=== PATIENT | female | born 1970 | race Hispanic/Latino ===

== ENCOUNTER 2018-11-01 11:19 | Emergency (ER) | payer OTHER ==
[2018-11-01] MEDS ORDERED: ACETAMINOPHEN EXTRA STRENGTH 500 MG TABLET ONE (11:36)
== END 2018-11-01 12:12 | disposition home or self-care (01) ==
LOC: EDH 11:19
DX: S93.402A Sprain of unspecified ligament of left ankle, initial encounter (principal); Z98.890 Other specified postprocedural states; X58.XXXA Exposure to other specified factors, initial encounter; Y93.01 Activity, walking, marching and hiking; Y92.009 Unspecified place in unspecified non-institutional (private) residence as the place of occurrence of the external cause; Y99.8 Other external cause status